=== PATIENT | male | born 1940 | race Caucasian/White ===

== ENCOUNTER 2017-02-07 00:14 | Day surgery (SDC) | payer MEDICARE, OTHER ==
[2017-02-07] VITALS (11 sets, daily range): BP systolic 106–126; BP diastolic 58–71; PULSE 60–62; RESP 14–18; O2SAT 98–99
[~2017-02-07] VITALS: Ht 177.8 cm; Wt 73.6 kg
[~2017-02-07 00:14] MED LIST: ASCO250T7 PO; ASPI325T32 PO; ATOR40TA69 PO; FOLI1TAB18 PO; LOSA25TA21 PO; MAGN400T39 PO; METO-272 PO; MULT1CAP33 PO; OMEG-81 PO; SPIR25TA3 PO; TORS20TA3 PO; UBID300C PO; VITA100T4 PO
[2017-02-07] MEDS ORDERED: 0.9% Sodium Chloride 1,000 ML IV PRN (08:28)
[2017-02-07 12:44] LABS: BASOPHILS % (AUTO) 0.8 % (0-3); EOSINOPHILS % (AUTO) 2.6 % (0-5); MONOCYTES % (AUTO) 11.5 % (4-12); Mean Corpuscular Hemoglobin 33.5 pg (27.0-35.0); Mean Corpuscular Volume 100.6 fL (81-100); NEUTROPHILS % (AUTO) 58.9 % (40-74); Platelet Count 126 bil/L (150-400)
[2017-02-07] MEDS ORDERED: AMLO5TAB2 PO (12:45)
[2017-02-07 12:59] LABS: INR 1.05 ratio
[2017-02-07] MEDS ORDERED: Vancomycin Inj 1,000 MG in IV Premix 1 EACH IV ONE (13:40)
[2017-02-07] MEDS ORDERED: Bupivacaine-MPF 0.5% 30 mL Inj ONE (13:45)
[2017-02-07] MEDS ORDERED: Heparin 10,000 Unit/1,000 mL NS Premix IV ONE (13:45)
[2017-02-07] MEDS ORDERED: fentaNYL-PF 50 mCg/mL 2 mL Inj ONE ×2 (13:45→15:18)
[2017-02-07] MEDS ORDERED: 0.9% Sodium Chloride 250 ML ONE (13:46)
[2017-02-07] MEDS ORDERED: Vancomycin 1,000 mg Inj ONE (13:46)
[2017-02-07] MEDS ORDERED: 0.9% Sodium Chloride 1,000 ML IV SCH (16:32)
[2017-02-07] MEDS ORDERED: Ondansetron 2 mg/mL 2 mL Inj IVPUSH PRN (16:35)
[2017-02-07] MEDS ORDERED: HYDROcodone-APAP 5-325 mg Tablet PO PRN (16:35)
--- NOTE | 2017-02-07 17:28 | DRSVH ---
PROCEDURE: X-RAY CHEST ONE VIEW, PORTABLE ([id number]) INDICATIONS: For new leads placed TECHNIQUE: One view of the chest was acquired. COMPARISON: [facility], CHEST 2 VIEW, 12/08/2016, 16:52. FINDINGS: Surgical changes and devices: There is a new right cardiac lead. Patient is status post median sterno francisco javier. Lungs and pleura: No pleural effusions or pneumothorax. Lungs are clear. Mediastinum: Mediastinal contours appear normal. Heart size is enlarged, as before. Bones and chest wall: No suspicious bony lesions. Overlying soft tissues appear unremarkable. IMPRESSION: No pneumothorax after new lead placement. Dictated by: Viv Tatum M.D. on 02/07/2017 at 17:25 Approved by: Viv Tatum M.D. on 02/07/2017 at 17:26
--- NOTE | 2017-02-07 19:59 | NUR ---
Pt transferred to room 3024. Pt's VSS, left upper chest dressing CDI with no bleeding/hematoma noted. Report and pt handoff given to Leena THAYER.
[2017-02-08 01:03] VITALS: BP 119/78; PULSE 64; RESP 18; O2SAT 97
--- NOTE | 2017-02-08 01:37 | OP ---
[address] [address] OPERATIVE REPORT PATIENT: BROOKE BURTON : 1940 MR#: [id number] ADMIT: 02/07/2017 JOB ID: [id number] DATE OF SURGERY: 02/07/2017 PREOPERATIVE DIAGNOSIS(ES): 1. VT arrest with a single-chamber ICD in place. 2. Severe ischemic cardiomyopathy with ejection fraction 25% to 30%. 3. Complete heart block with obligate RV apical pacing and consequent left bundle-branch block. QRS duration 212 msec. 4. Chronic atrial fibrillation. 5. [place] [employer] class III heart failure symptoms. POSTOPERATIVE DIAGNOSIS(ES): 1. VT arrest with a single-chamber ICD in place. 2. Severe ischemic cardiomyopathy with ejection fraction 25% to 30%. 3. Complete heart block with obligate RV apical pacing and consequent left bundle-branch block. QRS duration 212 msec. 4. Chronic atrial fibrillation. 5. [place] [employer] class III heart failure symptoms. PROCEDURES PERFORMED: 1. Upgrade of a single-chamber ICD system to a biventricular ICD system with placement of a multilead ICD generator and coronary sinus LV lead in utilization of chronic RV ICD lead. 2. Left upper extremity venogram. 3. Coronary sinus venogram. 4. Pocket revision. 5. Fluoroscopy. SURGEON: Anshu Martin MD, outreach liaison. CHROMIUM PLATER: Marilou Juarez. IMPLANTED DEVICES: 1. [employer] pulse generator model [id number]. Serial number [id number]. 2. LV lead [employer] 1458Q, 86 cm. Serial number [id number]. CHRONIC DEVICE: RV ICD lead, dual coil DF-1 Medtronic 6947, 65 cm. Serial number [id number]. EXPLANTED DEVICE: Medtronic model [id number]. Serial number [id number]. ANESTHESIA: Bolus dosing of Versed and fentanyl utilized for appropriate level of sedation. INDICATION: The patient is a pleasant 76-year-old man with ischemic heart disease, bypass grafting, severe ischemic cardiomyopathy, complete heart block, chronic atrial fibrillation, VT with a single-chamber ICD. He has obligate RV apical pacing and advanced heart failure symptomology. After discussion of risks and benefits of upgrade to a biventricular ICD system, he opted to proceed. PROCEDURAL DESCRIPTION: Following informed consent, patient was taken to the EP laboratory in a fasting nonsedated state, where he was prepped in usual sterile fashion. A left upper extremity venogram confirmed patency of the left subclavian venous drainage system. The left infraclavicular surgical scar was infiltrated with 40 cc of a 50/50 mixture of bupivacaine and lidocaine. Once adequate sedation had been achieved, a 4 cm transverse incision was performed overlying previous surgical scar. Dissection was carried down to the capsule and the leads and generator were freed loose of adhesions. The inferior and medial aspects of the capsule were infiltrated with 1% lidocaine and the pocket extended to accommodate the larger footprint of the new device and additional lead. Under venographic guidance, the left subclavian vein was accessed with a micropuncture needle over the first rib to deploy a 0.035, 3 mm J guidewire. Serial dilation was performed and ultimately a 9-[place] peel-away sheath was inserted over the wire. Once the guidewire and dilator were removed a [employer] coronary sinus delivery sheath was delivered over a Super CS decapolar EP catheter, which was then used to engage the coronary sinus. The delivery sheath was inserted to the coronary sinus and a manual injection of contrast revealed a large posterolateral branch at the three o'clock position off of the coronary sinus along the mitral annulus. This was chosen as our position of choice. The line was cleared and a quadripolar CS lead was brought to the field and delivered into the branch of choice over a Whisper wire. The lead was connected to the external analyzer and demonstrated appropriately sensed R waves, impedance and capture threshold. Was checked to 10 V and there was no evidence of diaphragmatic stimulation. The Whisper wire was removed and in its stead was placed a finishing stylet. The short 9-[place] sheath was slit first then the long sheath was slit. Lead maintained in position. Once adequate slack had been identified, the lead was affixed to the floor of the capsule using its associated anchoring sleeves and two Ethibond sutures. The pocket was copiously irrigated with antibiotic solution. The newly placed LV lead was then connected to a new multilead ICD generator for pacing. The chronic lead was disconnected from the old generator and the chronic lead was then connected to the new generator. The atrial port was plugged. The entire system was replaced into the capsule and secured to the floor of the capsule using 1-0 Ti-Cron suture. The incision was then closed with running layers of absorbable suture. The wound was dressed with skin adhesive and a small dressing. At the end of procedure, the needle, sponge, instrument counts were all correct. COMPLICATIONS: None. ESTIMATED BLOOD LOSS: 9 to 10 cc. DEVICE MEASURED DATA: 1. RV lead greater than 12 mV. This was an escape rhythm at 30 beats per minute, 375 ohms, 0.75 V at 0.5 msec. 2. LV lead 630 ohms, 1.25 V at 0.5 msec ( to RV coil). FINAL PROGRAM PARAMETERS: 1. VVIR 70 beats per minute. 2. VT monitor zone at 150 beats per minute. 3. VF zone at 172 beats per minute with ATP during charge followed by maximum output shocks. IMPRESSION: Successful upgrade to a biventricular ICD system. PLAN: 1. Stat portable chest x-ray. 2. PA and lateral chest x-ray in the morning. 3. Device interrogation in the morning. 4. IV vancomycin through tomorrow. 5. Doxycycline x7 days starting tomorrow. 6. Wound check in one week. ATTENDING STATEMENT: Anshu Martin MD, electrophysiology attending, was present for and supervised/performed all aspects of this procedure.
--- NOTE | 2017-02-08 03:35 | NUR ---
Arrival to [facility] Pt arrived on unit #[id number] via stretcher from [facility]. Report given to receiving RN. Able to transfer self to bed. VSS. No complaints of pain or discomfort at this time. Denies SOB, n/v. Oriented to hospital policy and call light. Bed locked, low position. non slip socks and SBA for safety. Call light within reach, using appropriately. Frequent rounding in place. Pleasant and cooperative with care.
[2017-02-08] MEDS ORDERED: Vancomycin Inj 1,000 MG in IV Premix 1 EACH IV ONE (04:35)
[2017-02-08 05:12] VITALS: BP 122/74; PULSE 68; RESP 18; O2SAT 96
--- NOTE | 2017-02-08 06:43 | NUR ---
OFF UNIT Pt down to xray. audit tech notified.
--- NOTE | 2017-02-08 06:53 | NUR ---
RETURN TO UNIT Pt returned to unit. Call light within reach.
[2017-02-08] MEDS ORDERED: MeTOProlol XL 50 mg ER24 Tablet PO SCH (08:30)
[2017-02-08] MEDS ORDERED: Omega-3 Fatty Acids 1,000 mg Capsule PO SCH (08:30)
[2017-02-08] MEDS ORDERED: Ascorbic Acid 500 mg Tablet PO SCH (08:30)
[2017-02-08 08:51] VITALS: BP 127/53; PULSE 60; RESP 18; O2SAT 100
--- NOTE | 2017-02-08 09:03 | DRSVH ---
PROCEDURE: X-RAY CHEST, TWO VIEWS ([id number]) INDICATIONS: For new lead placement TECHNIQUE: 2 views of the chest were acquired. COMPARISON: [facility], CR, XR CHEST 1VW (PORTABLE), 02/07/2017, 16:54. FINDINGS: Surgical changes and devices: Stable positioning of left chest AICD. Post median sternotomy. Lungs and pleura: Trace pleural effusions and no pneumothorax. Lungs are clear. Mediastinum: Mediastinal contours are normal. Heart size is enlarged. Bones and chest wall: No suspicious bony abnormalities. Soft tissues appear unremarkable. IMPRESSION: 1. Stable position left chest AICD and no pneumothorax. 2. Trace pleural effusions. Dictated by: Flako Henry RR Interpreted: David Mackenzie MD on 02/08/2017 at 9:01 Transcribed by: RASHIDA on 02/08/2017 at 9:03 Approved by: David Mackenzie M.D. on 02/08/2017 at 11:43
--- NOTE | 2017-02-08 10:10 | PCM.DIMED ---
Discharge Instructions Date of Service Feb 08, 2017 Dates of Hospitalization Discharge Diagnosis Discharge Diagnosis Ischemic Cardiomyopathy Atrial Flutter Hypertension History of Cardiac Arrest in 2006 Diet Discharge Diet: Low fat, Low Sodium, Heart Healthy Activity Discharge Activity: Other (Keep incision dry one day. Do not extend left arm above shoulder for one month. Do not lift, push or pull more than 10 lbs with the left arm for one month.) Call your provider Call your provider for: Fever or Chills, Bleeding, Excessive diarrhea Patient Instructions Provider: Germain Butler PA-C Follow-up in: 1 week (Cardiology Device Clinic) Mid-level Provider (F9): Germain Butler PA-C Follow-up with Mid-level in: 6 weeks Germain Butler PA-C Feb 08, 2017 10:10
[2017-02-08] MEDS ORDERED: CEPH500C PO (10:15)
[2017-02-08] MEDS ORDERED: FERR-74 PO (10:15)
[2017-02-08 10:45] VITALS: PULSE 63
--- NOTE | 2017-02-08 12:43 | NUR ---
Discharge pt ordered for discharge home. pt aware. discharge instructions and medications reviewed with patient and . pt offered wheelchair, pt deferred. pt ambulated with steady gait to front lobby with all belongings at about 1126.
--- NOTE | 2017-02-08 14:04 | DIS ---
[address] [place] [address] DISCHARGE SUMMARY PATIENT: BROOKE BURTON : 1940 MR#: [id number] ADMIT: 02/07/2017 JOB ID: [id number] DIS: 02/08/2017 DATE OF SERVICE: 02/07/2017 REASON FOR ADMISSION: Upgrade of defibrillator from single-chamber to biventricular. CHIEF COMPLAINT: Persistent dyspnea, fatigue and edema. BRIEF HISTORY: The patient is a very pleasant 76-year-old man with an ischemic cardiomyopathy, chronic atrial flutter and history of [id number] cardiac arrest in 2006. His LV ejection fraction measured by echo in November 2016 was 25% to 30%. In October of this year, he began demonstrating signs and symptoms of systolic heart failure including fluid weight gain, lower extremity edema and dyspnea. His diuretics were adjusted and he lost about 20 pounds, but his ejection fraction has not improved. He is on heart failure medications. His previous single-chamber ICD had been pacing about 90% of the time causing poor ventricular synchrony. The decision was made to upgrade his device to a biventricular device for cardiac resynchronization therapy. COURSE IN HOSPITAL: The patient was admitted through the [facility] and taken to the organic lab worker, where he underwent the device replacement and upgrade procedure without incident. He was taken back to the [facility] for recovery from sedation and then transferred up to the [facility] for overnight telemetry and observation. He did well overnight and in the morning was feeling well and wished to be discharged home. He was ambulatory without difficulty. The ICD site is closed and dry. There appears to be soft fluid collection in the ICD pocket, but there is very little ecchymoses on the surface. Chest x-ray shows good lead positions and no pneumothorax. Device evaluation showed good capture and sensing thresholds for both ventricular leads. DISPOSITION: The patient was discharged home in good condition with a followup appointment at the [facility] Cardiology office in one week. He was asked not to extend his left arm high above his head and not to lift, push or pull more than 10 pounds with the left arm for one month. He will follow his heart healthy, low-fat, low-sodium diet and take medications as prescribed. DISCHARGE MEDICATIONS: 1. Cephalexin 500 mg t.i.d. for one week. 2. Ferrous sulfate 325 mg daily. 3. Amlodipine 5 mg daily. 4. Ascorbic acid 250 mg daily. 5. Aspirin 325 mg daily. 6. Atorvastatin 40 mg daily. 7. Folic acid 1 mg daily. 8. Losartan 25 mg q.h.s. 9. Magnesium oxide 400 mg daily. 10. Metoprolol succinate 50 mg daily. 11. Multivitamin one daily. 12. [place]-3 fatty acids fish oil gel cap, one daily. 13. Spironolactone 25 mg daily. 14. Torsemide 20 mg daily. 15. Co Q10 at 300 mg daily. 16. Vitamin B 100 mg daily. FINAL DIAGNOSES: 1. Ischemic cardiomyopathy, LV dysfunction, with heart failure symptoms. 2. Chronic atrial fibrillation. 3. Hypertension. 4. History of cardiac arrest in 2006.
== END 2017-02-08 11:25 | disposition home or self-care (01) ==
LOC: SOUO 00:14 → MPC 19:34 → SOUO 02-08 11:25
PROVIDERS: ATTEND Internal Medicine Cardiovascular Disease
DX: I25.5 Ischemic cardiomyopathy (principal); I48.2 Chronic atrial fibrillation; I44.2 Atrioventricular block, complete; I44.7 Left bundle-branch block, unspecified; I50.20 Unspecified systolic (congestive) heart failure; I48.4 Atypical atrial flutter; I25.10 Atherosclerotic heart disease of native coronary artery without angina pectoris; Z86.74 Personal history of sudden cardiac arrest; Z95.1 Presence of aortocoronary bypass graft; I25.2 Old myocardial infarction; I10 Essential (primary) hypertension; E78.5 Hyperlipidemia, unspecified; Z79.82 Long term (current) use of aspirin; Z95.810 Presence of automatic (implantable) cardiac defibrillator
CPT/HCPCS: 33225; 33263; 36415; 71010; 71020; 80048; 85025; 85610; 93005; 99152; 99153; C1730; C1769; C1882; C1892; C1900; J1644; J2250; J3010; J3370; J7030; J7050; Q9967